=== PATIENT | male | born 1990 | race Caucasian/White ===

== ENCOUNTER 2019-03-14 13:13 | Emergency (ER) | payer BC ==
[2019-03-14] MEDS ORDERED: Diphtheria,Pertussis(Acell),Tetanus Vaccine 0.5 ML Syringe IM ONE (13:32)
--- NOTE | 2019-03-14 14:26 | CT ---
CT facial bones Technique: Multiple axial sections were obtained from below the mandible superiorly through the frontal sinuses and external auditory canals. Reconstructed coronal and sagittal images were obtained. Findings: Soft tissue swelling is noted within the right periorbital region extending slightly into the right frontal scalp and into the right cheek. Soft tissue swelling does not extend posterior to the orbital septum. Right and left globes are symmetric. No other soft tissue abnormality is appreciated. Paranasal sinuses shows evidence of mucosal thickening within the left frontal, ethmoid, sphenoid and maxillary sinuses. Findings have the appearance of chronic sinusitis. No acute facial bone fracture is appreciated. Impression: 1. Probable findings of chronic sinusitis as noted above. 2. Soft tissue swelling as described above on the right side. 3. No acute facial bone fracture is appreciated. Diagnostic code #3 Study was dictated in [place] Standard Time
--- NOTE | 2019-03-14 14:26 | CT ---
Head CT Technique: Multiple axial sections through the brain were obtained. Intravenous contrast was not utilized. Comparison: No prior intracranial imaging. Findings: Soft tissue swelling is seen within the right periorbital region. Ventricles along with basal cisterns and sulci over the convexities are within normal limits for the patient's age. No abnormal parenchymal densities are seen. No evidence of intracranial hemorrhage. No midline shift or mass effect is seen. Near complete opacification of the left maxillary sinus is seen. Mild mucosal thickening is noted within the right maxillary sinus. Probable retention cyst measuring 1.7 cm is seen within the inferior right maxillary sinus. Mild mucosal thickening is seen within sphenoid and within the ethmoid sinuses. Mastoid sinuses are clear. No acute calvarial abnormality is appreciated. Impression: 1. Sinus findings which are most likely due to chronic sinusitis. 2. Soft tissue swelling is seen within the right periorbital region. 3. No acute intracranial abnormality is appreciated. Diagnostic code #2 Study was dictated in [place] Standard Time
[2019-03-14] MEDS ORDERED: Octyl 2-Cyanoacrylate 1 APPLIC TUBE TOP ONE (14:45)
[2019-03-14] MEDS ORDERED: Octyl 2-Cyanoacrylate 1 APPLIC TUBE ONE (14:46)
--- NOTE | 2019-03-14 15:07 | EDM.PDOC ---
ED HPI GENERAL MEDICAL PROBLEM - General Chief Complaint: ENT Problem Stated Complaint: INJURY TO RT EYE Time Seen by Provider: 03/14/19 15:02 Source of Information: Reports: Patient - History of Present Illness INITIAL COMMENTS - FREE TEXT/NARRATIVE: HISTORY AND PHYSICAL: History of present illness: [Patient presents post fall, he tripped and fell in his home striking his head on a countertop he states that he did lose consciousness for a few minutes incident occurred 30 minutes prior to arrival allowing for travel time this would be consistent, as patient states he is not sure how long he had lost consciousness. He arrives with a very swollen right eye upper lid with a 3 cm linear laceration across the upper lid, the eye is to swollen to view the orbit I did not pry his eyelid open, left eye is unaffected there is a small subcentimeter laceration over his nasal bridge The lacerations are not full-thickness, applied Dermabond ] Review of systems: As per history of present illness and below otherwise all systems reviewed and negative. Past medical history: As per history of present illness and as reviewed below otherwise noncontributory. Surgical history: As per history of present illness and as reviewed below otherwise noncontributory. Social history: No reported history of drug or alcohol abuse. Family history: As per history of present illness and as reviewed below otherwise noncontributory. Physical exam: HEENT: Atraumatic, normocephalic, pupils reactive, negative for conjunctival pallor or scleral icterus, mucous membranes moist, throat clear, neck supple, nontender, trachea midline. Right eye noted as per HPI Lungs: Clear to auscultation, breath sounds equal bilaterally, chest nontender. Heart: S1S2, regular, negative for clicks, rubs, or JVD. Abdomen: Soft, nondistended, nontender. Negative for masses or hepatosplenomegaly. Negative for costovertebral tenderness. Pelvis: Stable nontender. Genitourinary: Deferred. Rectal: Deferred. Extremities: Atraumatic, negative for cords or calf pain. Neurovascular unremarkable. Neuro: Awake, alert, oriented. Cranial nerves II through XII unremarkable. Cerebellum unremarkable. Motor and sensory unremarkable throughout. Exam nonfocal. Diagnostics: [CT no contrast Maxillofacial no contrast ] Therapeutics: [tdap Status is updated Dermabond Keflex Rest ice ibuprofen ] Impression: [Contusion right eye 3.5 cm linear laceration, simple] Definitive disposition and diagnosis as appropriate pending reevaluation and review of above. Right Eye Pain Score (Numeric/FACES): 8 - Related Data Allergies Allergy/AdvReac Type Severity Reaction Status Date / Time lidocaine Allergy Airway Verified 03/14/19 13:19 Tightness Home Meds: Home Meds Cyclobenzaprine [Flexeril] 10 mg PO ASDIRECTED 03/14/19 [History] predniSONE 1 mg PO DAILY 03/14/19 [History] Past Medical History - Infectious Disease History Infectious Disease History: Reports: Chicken Pox - Past Surgical History Musculoskeletal Surgical History: Reports: Other (See Below) Other Musculoskeletal Surgeries/Procedures:: right ankle Social & Family History - Family History Family Medical History: Noncontributory - Tobacco Use Smoking Status *Q: Current Every Day Smoker Years of Tobacco use: 100 Packs/Tins Daily: 0.5 - Caffeine Use Caffeine Use: Reports: None - Recreational Drug Use Recreational Drug Use: No ED ROS GENERAL - Review of Systems Review Of Systems: See Below ED EXAM, GENERAL - Physical Exam Exam: See Below Course - Vital Signs Last Recorded V/S: Last Vital Signs Temp 97.7 F 03/14/19 13:21 Pulse 99 03/14/19 13:21 Resp 20 03/14/19 13:21 BP 172/107 H 03/14/19 13:21 Pulse Ox 95 03/14/19 13:21 - Orders/Labs/Meds Orders: Active Orders 24 hr Category Date Time Status Vaccines to be Administered [RC] PER UNIT ROUTINE Care 03/14/19 13:32 Active Meds: Medications Discontinued Medications Generic Name Dose Route Start Last Admin Trade Name Ivan PRN Reason Stop Dose Admin Diphtheria/Tetanus/Acell Pertussis 0.5 ml 03/14/19 13:32 03/14/19 14:34 Adacel IM 03/14/19 13:33 0.5 ml .ONCE ONE Administration Octyl Cyanoacrylate Confirm 03/14/19 14:46 Dermabond Mini Administered 03/14/19 14:47 Dose 1 applic .ROUTE .STK-MED ONE Departure - Departure Time of Disposition: 15:05 Disposition: Home, Self-Care 01 Condition: Good Clinical Impression: Laceration, Contusion, Concussion - Discharge Information Referrals: PCP,None [Primary Care Provider] - Additional Instructions: rest/ice/ ibuprofen Keflex as prescribed return If symptoms persist or worsen or if new concerning symptoms develop Follow-up with primary care in 2 weeks sooner as needed [facility] - Primary [facility] [address] [place] [id number] The following information is given to patients seen in the emergency department who are being discharged to home. This information is to outline your options for follow-up care. We provide all patients seen in our emergency department with a follow-up referral. The need for follow-up, as well as the timing and circumstances, are variable depending upon the specifics of your emergency department visit. If you don't have a primary care physician on staff, we will provide you with a referral. We always advise you to contact your personal physician following an emergency department visit to inform them of the circumstance of the visit and for follow-up with them and/or the need for any referrals to a consulting specialist. The emergency department will also refer you to a specialist when appropriate. This referral assures that you have the opportunity for follow-up care with a specialist. All of these measure are taken in an effort to provide you with optimal care, which includes your follow-up. Under all circumstances we always encourage you to contact your private physician who remains a resource for coordinating your care. When calling for follow-up care, please make the office aware that this follow-up is from your recent emergency room visit. If for any reason you are refused follow-up, please contact the [facility] emergency department at and asked to speak to the emergency department charge nurse. Sepsis Event Note - Evaluation Sepsis Screening Result: No Definite Risk - Focused Exam Vital Signs: Vital Signs Temp Pulse Resp BP Pulse Ox 03/14/19 13:21 97.7 F 99 20 172/107 H 95 Date Exam was Performed: 03/14/19 Time Exam was Performed: 15:01 - My Orders Last 24 Hours: My Active Orders 03/14/19 13:32 Vaccines to be Administered [RC] PER UNIT ROUTINE - Assessment/Plan Last 24 Hours: My Active Orders 03/14/19 13:32 Vaccines to be Administered [RC] PER UNIT ROUTINE
== END 2019-03-14 15:13 | disposition home or self-care (01) ==
LOC: MW.ED 13:13
DX: S06.0X9A Concussion with loss of consciousness of unspecified duration, initial encounter (principal); S01.111A Laceration without foreign body of right eyelid and periocular area, initial encounter; S01.21XA Laceration without foreign body of nose, initial encounter; Z23 Encounter for immunization; F17.210 Nicotine dependence, cigarettes, uncomplicated; Z88.8 Allergy status to other drugs, medicaments and biological substances; Z79.899 Other long term (current) drug therapy; W01.10XA Fall on same level from slipping, tripping and stumbling with subsequent striking against unspecified object, initial encounter
CPT/HCPCS: 12013; 70450; 70486; 90471; 90715; 99283; A9270; 99284